=== PATIENT | female | born 1990 | race Caucasian/White ===

== ENCOUNTER 2016-04-14 12:57 | Observation (INO) | payer OTHER ==
[~2016-04-14] VITALS: Ht 163.8 cm; Wt 91.6 kg
[~2016-04-14 12:57] MED LIST: DICY20TA33 PO; ONDA4TAB6 PO
[2016-04-14] MEDS ORDERED: diphenhydrAMINE 50 mg Capsule PO PRN (15:10)
[2016-04-14] MEDS ORDERED: CALC500T9 PO (15:32)
[2016-04-14] MEDS ORDERED: PNV91TAB6 PO (15:32)
[2016-04-14 19:51] LABS: Mean Corpuscular Hemoglobin 28.9 pg (27.0-35.0); Mean Corpuscular Volume 86.6 fL (81-100)
[2016-04-15] MEDS ORDERED: Misoprostol 25 mCg/0.25 Tablet VAGINAL SCH (05:10)
[2016-04-15] MEDS ORDERED: Oxytocin 30 Units/500 mL LR 30 UNITS in IV Premix 1 EACH IV PRN (12:50)
[2016-04-15] MEDS: Lactated Ringer's 1,000 ML IV SCH ×2 (13:22→16:31)
--- NOTE | 2016-04-15 18:55 | PCM.DIMED ---
Discharge Instructions Date of Service Apr 15, 2016 Dates of Hospitalization Apr 14, 2016 at 13:12 Diet No restrictions Activity No restrictions Call your provider Fever or Chills, Other (Signs of labor, or water breaking or bleeding. ) Patient Instructions Follow-up with PCP in: Other (2 days) Bryant Winston MD Apr 15, 2016 18:55
--- NOTE | 2016-04-15 20:02 | DIS ---
[address] [address] DISCHARGE SUMMARY PATIENT: RICKI RIGGS : 1990 MR#: [id number] ADMIT: 04/14/2016 JOB ID: [id number] DIS: ADMISSION DIAGNOSIS: Post-dates at 41 weeks. DISCHARGE DIAGNOSIS: 1. Post-dates at 41 weeks. 2. Attempted induction. HISTORY OF PRESENT ILLNESS: The patient is a 25-year-old G1, P0 at 41 weeks' gestation who was admitted to the hospital for an attempt at postdates ripening and induction. She initially had a Tapia score of about three in the office. She had Cervidil placed and monitored for 12 hours overnight. HOSPITAL COURSE: The patient had minimal cervical change and then had Cytotec placed this morning. She had some contractions and cramping and then the Cytotec was completed. There was minimal cervical change. She had Pitocin augmentation performed for about 6 hours with reassuring heart tones. monitoring shows a heart rate of 150 with reactive accelerations, no decelerations, moderate variability, and category one tracing. DISCHARGE PLAN: The patient is going to go home with watchful waiting. I think we have reassuring monitoring for the next several days. I will see her on Wednesday in the clinic and perform an amniotic fluid index at that time. Otherwise, she is going to do expectant management at home and if reassuring monitoring will reschedule induction in several days' time.
== END 2016-04-15 19:15 | disposition home or self-care (01) ==
LOC: FBC 13:12 → INTOOBSV 13:12
PROVIDERS: ADMIT Family Medicine; ATTEND Family Medicine
PROC: 0U7C7ZZ Dilation of Cervix, Via Natural or Artificial Opening (ICD-10-PCS; principal; 2016-04-14)
DX: O48.0 Post-term pregnancy (principal); O61.8 Other failed induction of labor; Z3A.41 41 weeks gestation of pregnancy
CPT/HCPCS: 36415; 85027; 86850; G0378; G0463; J2590; J7120

== ENCOUNTER 2016-04-20 01:32 | Inpatient (IN) | payer OTHER ==
[~2016-04-20] VITALS: Ht 163.8 cm; Wt 92.5 kg
[~2016-04-20 01:32] MED LIST changes: +CALC500T9 PO; +PNV91TAB6 PO
[2016-04-20] MEDS ORDERED: Lactated Ringer's 1,000 ML IV SCH (19:54)
[2016-04-20] MEDS ORDERED: Misoprostol 25 mCg/0.25 Tablet VAGINAL SCH (19:55)
[2016-04-20] MEDS ORDERED: Lactated Ringer's 1,000 ML IV PRN (19:57)
[2016-04-20] MEDS ORDERED: Methylergonovine 0.2 mg/mL Inj IM PRN (20:00)
[2016-04-20] MEDS ORDERED: Carboprost 250 mCg/mL Inj IM PRN (20:00)
[2016-04-20] MEDS ORDERED: Oxytocin 10 Unit/mL Inj IM PRN (20:00)
[2016-04-20] MEDS ORDERED: Hemorrhage Kit, Post Partum XX ONE (20:00)
[2016-04-20 20:11] LABS: Mean Corpuscular Hemoglobin 28.8 pg (27.0-35.0); Mean Corpuscular Volume 85.5 fL (81-100)
[2016-04-21] MEDS ORDERED: fentaNYL-PF 50 mCg/mL 2 mL Inj ONE (04:13)
[2016-04-21] MEDS: fentaNYL-PF 50 mCg/mL 2 mL Inj IVPUSH PRN ×3 (04:40→13:15)
[2016-04-21] MEDS: Lactated Ringer's 1,000 ML IV SCH ×2 (05:04→13:04)
[2016-04-21] MEDS ORDERED: Lactated Ringer's 500 ML IV ONE (05:04)
[2016-04-21] MEDS ORDERED: EPHEDrine Sulfate 50 mg/mL Inj IVPUSH PRN (05:05)
[2016-04-21] MEDS ORDERED: Atropine 1 mg/10 mL (Code) Syringe IVPUSH PRN (05:05)
[2016-04-21] MEDS ORDERED: fentaNYL 2 mCg/mL-Bupiv 0.125% 100 ML EPIDURAL SCH (05:05)
[2016-04-21] MEDS ORDERED: Ondansetron 2 mg/mL 2 mL Inj IVPUSH PRN (05:05)
--- NOTE | 2016-04-21 05:06 | PCM.HPANE ---
Patient Data Surgeon Admitting Provider:Bryant Winston MD Attending Provider:Bryant Winston MD Primary Care Physician:Bryant Winston MD Other Provider:Abisai Cordero Anesthesia Reason for Visit Induction INDUCTION Ht/WT & BMI Body Mass Index Allergies Coded Allergies: rizatriptan (Verified Allergy, Unknown, 04/14/16) causes worse headache and nausea sumatriptan (Verified Allergy, Unknown, 04/14/16) causes worse headache and nausea Past Anesthesia History Anesthesia History: Denies:: Abnormal Airway, Difficult Intubation Diabetes History Hx Diabetes?: No Medications Hypertension Medication: No Home Meds Incl Beta Jeannie: No Active Scripts Dicyclomine (Bentyl)20 Mg [id number] Mg PO QID PRN abdominal cramps #20 TABLET Prov:Yvan Rand 02/09/15 Ondansetron (Zofran)4 Mg Tablet4 Mg PO Q4H PRN For Nausea #20 TABLET Prov:Yvan Rand 02/09/15 Reported Medications Calcium Carbonate (Tums)500 Mg Tab.icxv687 Mg PO PRN PRN heartburn 30 Days 04/14/16 Pnv95/Ferrous Fumarate/FA ( Vitamin Tablet)28 Mg Iron-800 Mcg Tablet1 Each PO DAILY 04/14/16 History HEENT History: Denies:: Abnormal Airway Difficult Intubation Hx of Heart Problems?: No Cardiovascular History: Denies:: Congestive Heart Failure Hypertension Hx of Respiratory Problem?: No Respiratory History: Denies:: Tuberculosis Hx Neurologic Problems?: No Hx of GI Problems?: No Hx of Problems?: No HX of Peritoneal Dialysis: No Female Hx: Positive for:: Currently Hx Musculoskeletal Problems?: No Hx of Psycho/Social Problems?: No Hx Surgeries?: No Hx Diabetes: No Hx Alcohol Use: NoHx Substance Use: NoHave You Smoked inLast 12 mo: No Stop/Bang Treated for Sleep Apnea?: No Do You Have a CPAP Machine?: No Risk Assessment Category Category 1A: Patient has history of documented sleep apnea, and HAS NOT received any narcotic, sedative or anesthesia administration during this stay. Category 1B: Patient has history of documented sleep apnea, and HAS received any narcotic , sedative or anesthesia administration during this stay Category 2: Patient has SUSPECTED Obstructive Sleep Apnea, and HAS received any narcotic , sedative or anesthesia administration during this stay. Category 3: Patient has SUSPECTED Obstructive Sleep Apnea and HAS NOT received narcotic, sedative or anesthesia administration during this stay. Category 4: Outpatient in Procedural Areas with known sleep apnea or who screen positive for High Risk via the STOP/BANG questionnaire. Exam Exam General Appearance: Alert, Oriented X3, Cooperative, No Acute Distress HEENT/AIRWAY: MP 2 Lungs: Clear to Auscultation, Normal Air Movement Heart: Exam Unremarkable, Regular Rate/Rhythm, No Murmurs/Rubs/Gallops Meds/Labs/Diagnostics Admission Meds Current Medications Misoprostol (Cytotec) 25 mcg Q4H VAGINAL Last administered on 04/20/16 20:12; Start 04/20/16 at 19:55 Fentanyl Citrate (Sublimaze Inj) 100 mcg STK-MED ONCE .ROUTE Last administered on 04/21/16 04:17; Start 04/21/16 at 04:13; Stop 04/21/16 at 04:14; Status DC Labs Test 04/20/16 19:34 White Blood Count 8.1th/mm3 (3.8-10.1) Red Blood Count 3.58mil/mm3 (3.90-5.20) Hemoglobin 10.3g/dL (12.0-15.6) Hematocrit 30.6% (35.0-46.0) Mean Corpuscular Volume 85.5fL (81-100) Mean Corpuscular Hemoglobin 28.8pg (27.0-35.0) Mean Corpuscular Hemoglobin Concent 33.7% (32.0-37.0) Red Cell Distribution Width 13.5% (12.3-15.4) Platelet Count 248bil/L (150-400) Plan Impression Patient chart reviewed, patient interviewed and anesthestic plan with risks, benefits, and alternatives discussed, and informed consent obtained. ASA Physical Status: ASA1 Normal Healthy Anesthetic Plan: Epidural Bene/Risks/Altern/Consents: Yes HP Complete Prior to Induction: Yes Jalen Beltran MD Apr 21, 2016 05:06
[2016-04-21] MEDS ORDERED: Oxytocin 30 Units/500 mL LR 30 UNITS in IV Premix 1 EACH IV PRN ×2 (07:15→11:15)
[2016-04-21] MEDS ORDERED: Sodium Chloride LOK Flush 10 mL Syringe IVFLUSH SCH (08:30)
[2016-04-21] MEDS ORDERED: Lactated Ringer's 1,000 ML IV SCH (11:13)
[2016-04-21] MEDS ORDERED: Witch Hazel-Glycerin Pads TOPICAL PRN (11:15)
[2016-04-21] MEDS ORDERED: Benzocaine (Dermoplast) 20% 60 Gm Spray TOPICAL PRN (11:15)
[2016-04-21] MEDS ORDERED: Methylergonovine 0.2 mg/mL Inj IM PRN (11:15)
[2016-04-21] MEDS ORDERED: HYDROcodone-APAP 5-325 mg Tablet PO PRN (11:15)
[2016-04-21] MEDS ORDERED: LANOlin HPA 7 Gm Ointment TOPICAL PRN (11:15)
[2016-04-21] MEDS ORDERED: Carboprost 250 mCg/mL Inj IM PRN (11:15)
[2016-04-21] MEDS ORDERED: Hemorrhage Kit, Post Partum XX ONE (11:15)
[2016-04-21] MEDS ORDERED: Oxytocin 10 Unit/mL Inj IM PRN (11:15)
--- NOTE | 2016-04-21 11:51 | PCM.ANEP1 ---
Post Anesthesia Phase 1 PACU Phase 1 Assessment Date of Service: Apr 21, 2016 Vital Signs See OB documentation Anesthetic Administered: Epidural Level of Alertness: Awake, talking PETTY's with Equal Strength: Yes Pain: No Nausea or Vomiting: No Oxygen Delivery: Room Air Lungs: Normal Air Movement Edward Ramirez MD Apr 21, 2016 11:51
--- NOTE | 2016-04-21 11:52 | PCM.ANEP2 ---
Post Anesthesia Evaluation ASA/CMS Post Anesthesia Date of Service: Apr 21, 2016 VS in Patient's Normal Range?: Yes Resp Stable; Airway Patent?: Yes CV Function & Hydration Stable: Yes Mental Status Recovered?: Yes Pain control Satisfactory?: Yes N/V Control Satisfactory?: Yes Edward Ramirez MD Apr 21, 2016 11:52
--- NOTE | 2016-04-21 20:37 | OP ---
[address] [address] OPERATIVE REPORT PATIENT: RICKI RIGGS : 1990 MR#: [id number] ADMIT: 04/20/2016 JOB ID: [id number] DATE OF SURGERY: 04/21/2016 SURGEON: Bryant Winston MD PREOPERATIVE DIAGNOSIS(ES): POSTOPERATIVE DIAGNOSIS(ES): PROCEDURE: Normal spontaneous vaginal delivery. ESTIMATED BLOOD LOSS: 300 cc. Apgars: Eight and nine at 1 and 5 minutes respectively. Lacerations: There was a second-degree perineal laceration repaired with 3-0 Vicryl. There was no episiotomy. Uterus: Spontaneous delivery of the placenta. No manual exploration of the uterus. DESCRIPTION: The patient is a 25-year-old, who presented for post-dates induction at 42 weeks. She had a post-dates induction at approximately 41 weeks with Cervidil, Cytotec and Pitocin that failed and she was monitored and then readmitted last night. She had one dose of Cytotec and then this morning, a De La Torre catheter was placed. She had increasing pain when the De La Torre was coming out and got an epidural for anesthesia. She also had a single dose of fentanyl at that time. She had steady progress along Gill's curve but had intolerance of labor with decelerations associated with pushing for 30-120 seconds with a heart rate around 90. When she did not push she had spontaneous recovery and so she pushed on alternate contractions. The head was delivered. There was no cord on palpation. The body was soon delivered afterward. The baby was vigorous so, although there was some light meconium, she was placed on the mother's abdomen. There was delayed cord clamping and then the placenta delivered spontaneously about 5 minutes later. Suture was used to repair the laceration, per above. Currently, mom and baby are doing well in recovery.
[2016-04-22 07:24] LABS: Mean Corpuscular Hemoglobin 28.6 pg (27.0-35.0); Mean Corpuscular Volume 87.7 fL (81-100)
--- NOTE | 2016-04-22 12:52 | PCM.DIOB ---
Obstetrical Disch Instruction Dates of Hospitalization Date of Hospital Admission Apr 20, 2016 at 18:49 Providers Admitting Physician: Bryant Winston MD Primary Care Physician: Bryant Winston MD Attending Physician: rByant Winston MD Diet Discharge Diet: No restrictions Activity Discharge Activity-General: No restrictions, Pelvic Rest for 6 weeks, Activity as energy allows Dressing and Incisional Care Hygiene: May shower Follow Up Plan Follow-up appointment: Weeks (6) Call your provider for: Fever or Chills, Shortness of breath, Heavy vaginal bleeding, Heavy bleeding, Epigastric pain, Excessive constipation, Vaginal discomfort, Red painful breasts Bryant Winston MD Apr 22, 2016 12:52
[2016-04-22] MEDS ORDERED: IBUP800T28 PO (12:53)
[2016-04-22] MEDS ORDERED: PNV91TAB6 PO (12:53)
[2016-04-22 13:05] VITALS: BP 118/56; PULSE 90; RESP 18
--- NOTE | 2016-04-22 15:57 | DIS ---
[address] [address] DISCHARGE SUMMARY PATIENT: RICKI RIGGS : 1990 MR#: [id number] ADMIT: 04/20/2016 JOB ID: [id number] DIS: 04/22/2016 ADMISSION DIAGNOSIS: Post-dates with induction. DISCHARGE DIAGNOSIS: Normal spontaneous vaginal delivery. BRIEF HISTORY AND PHYSICAL: The patient is a 25-year-old, G1, P0, who was presented at 42 weeks gestation for postdates induction after having attempted a post-dates induction at 41 weeks with no significant change but reassuring monitoring. She has an uncomplicated medical history and routine course other than postdates . HOSPITAL COURSE: The patient had Cytotec and De La Torre catheter ripening, followed by spontaneous active labor. She had a normal vaginal delivery with a perineal laceration that was repaired without complication. DISCHARGE EXAMINATION: The patient is nontoxic and feeling well. Abdomen is soft and nontender. There is no cervical exam. Legs had no significant edema. LABORATORIES: White count of 8.8 and hematocrit of 24.2. DISCHARGE MEDICATIONS: She is going to take home ibuprofen. She has not needed any other additional pain medications. DISCHARGE DISPOSITION: Home. DISCHARGE FOLLOWUP: I will see her in two days for well-child check, in six weeks for recheck.
== END 2016-04-22 13:51 | disposition home or self-care (01) | DRG 560 ==
LOC: FBC 18:49
PROVIDERS: ADMIT Family Medicine; ATTEND Family Medicine
PROC: 3E033VJ Introduction of Other Hormone into Peripheral Vein, Percutaneous Approach (ICD-10-PCS; 2016-04-20)
PROC: 10E0XZZ Delivery of Products of Conception, External Approach (ICD-10-PCS; principal; 2016-04-21)
PROC: 0KQM0ZZ Repair Perineum Muscle, Open Approach (ICD-10-PCS; 2016-04-21)
DX: O48.0 Post-term pregnancy (principal); O77.0 Labor and delivery complicated by meconium in amniotic fluid; Z3A.42 42 weeks gestation of pregnancy; Z37.0 Single live birth; O70.1 Second degree perineal laceration during delivery